=== PATIENT | female | born 1945 | race Caucasian/White ===

== ENCOUNTER → 2018-12-19 | Outpatient (CLI) | payer MEDICARE ==
[~2018-12-19] MED LIST: ALEN35 PO; ASPI325 PO; Amitiza24 MCG; CALPHO600 PO; DICL75ER; DOXE10 PO; ESCI10; ESTRTP; FISH1000 PO; GABA300 PO; MECL25 PO; METO50ER PO; NORT25; OLME20; TEMA7.5
[2018-12-19 12:28] LABS: BASOPHILS ABSOLUTE AUTO 0.02 K/mm3 (0.00-0.23); BASOPHILS PERCENT AUTO 0 % (0-2); EOSINOPHILS ABSOLUTE AUTO 0.04 K/mm3 (0.00-0.68); EOSINOPHILS PERCENT AUTO 1 % (0-6); Hematocrit 39.7 % (33.0-51.0); Hemoglobin 13.3 g/dL (11.5-16.0); IMMATURE GRAN ABSOLUTE AUTO 0.01 K/mm3 (0.00-0.10); IMMATURE GRAN PERCENT AUTO 0 % (0-1); LYMPHOCYTES ABSOLUTE AUTO 1.66 K/mm3 (0.84-5.20); LYMPHOCYTES PERCENT AUTO 31 % (21-46); MONOCYTES ABSOLUTE AUTO 0.59 K/mm3 (0.16-1.47); MONOCYTES PERCENT AUTO 11 % (4-13); Mean Corpuscular HGB 32.4 pg (26.0-34.0); Mean Corpuscular HGB Conc 33.5 g/dL (31.5-36.5); Mean Corpuscular Volume 97 fL (80-100); Mean Platelet Volume 9.9 fL (9.1-12.4); NEUTROPHILS PERCENT AUTO 57 % (41-73); Platelet Count 220 K/mm3 (150-400); RDW Coefficient Variation 13.1 % (11.7-14.2); RDW Standard Deviation 46.6 fL (35.1-46.3); White Blood Cell Count 5.42 K/mm3 (4.00-11.30)
[2018-12-19 12:43] LABS: Alanine Aminotransfer (ALT/SGP 32 U/L (12-78); Albumin, Blood 3.9 g/dL (3.4-5.0); Albumin/Globulin Ratio 1.1 (0.8-1.8); Alk Phos 63 U/L (40-126); Anion Gap 8 mmol/L (6-16); Aspartate Aminotrans (AST/SGOT 22 U/L (12-37); Bilirubin, Total 0.3 mg/dL (0.1-1.0); Blood Urea Nitrogen 18 mg/dL (8-24); Bun/Creatinine Ratio 23.7 (12.0-20.0); CO2, Blood 28 mmol/L (21-32); Calcium, Blood 9.4 mg/dL (8.5-10.1); Chloride, Blood 102 mmol/L (98-108); Creatinine, Blood 0.76 mg/dL (0.40-1.00); Globulin, Blood 3.6 g/dL (2.2-4.0); Glomerular Filtration Rate >60 (60-); Glucose, Blood 107 mg/dL (70-99); Potassium, Blood 4.1 mmol/L (3.5-5.5); Sodium, Blood 138 mmol/L (136-145); Total Protein, Blood 7.5 g/dL (6.4-8.2)
[2018-12-19 12:44] LABS: Troponin I <0.017 ng/mL (0.000-0.040)
== END ==
LOC: LAB EV 12:24 → LAB SHORT 12:24
PROVIDERS: Emergency Medicine
DX: R94.31 Abnormal electrocardiogram [ECG] [EKG] (principal)
CPT/HCPCS: 80053; 84484; 85025; 85379

== ENCOUNTER 2020-05-08 08:43 | Emergency (ER) | payer MEDICARE ==
[~2020-05-08] VITALS: Ht 157.5 cm; Wt 63.5 kg
[2020-05-08 09:14] LABS: BASOPHILS ABSOLUTE AUTO 0.02 K/mm3 (0.00-0.23); BASOPHILS PERCENT AUTO 0 % (0-2); EOSINOPHILS ABSOLUTE AUTO 0.14 K/mm3 (0.00-0.68); EOSINOPHILS PERCENT AUTO 3 % (0-6); Hematocrit 36.1 % (33.0-51.0); Hemoglobin 11.7 g/dL (11.5-16.0); IMMATURE GRAN ABSOLUTE AUTO 0.01 K/mm3 (0.00-0.10); IMMATURE GRAN PERCENT AUTO 0 % (0-1); LYMPHOCYTES ABSOLUTE AUTO 1.78 K/mm3 (0.84-5.20); LYMPHOCYTES PERCENT AUTO 36 % (21-46); MONOCYTES ABSOLUTE AUTO 0.69 K/mm3 (0.16-1.47); MONOCYTES PERCENT AUTO 14 % (4-13); Mean Corpuscular HGB 32.3 pg (26.0-34.0); Mean Corpuscular HGB Conc 32.4 g/dL (31.5-36.5); Mean Corpuscular Volume 100 fL (80-100); Mean Platelet Volume 9.8 fL (9.1-12.4); NEUTROPHILS ABSOLUTE AUTO 2.33 K/mm3 (1.96-9.15); NEUTROPHILS PERCENT AUTO 47 % (41-73); Platelet Count 192 K/mm3 (150-400); RDW Coefficient Variation 13.6 % (11.7-14.2); RDW Standard Deviation 50.2 fL (35.1-46.3); Red Blood Cell Count 3.62 M/mm3 (3.80-5.20); White Blood Cell Count 4.97 K/mm3 (4.00-11.30)
[2020-05-08 09:33] LABS: Alanine Aminotransfer (ALT/SGP 25 U/L (12-78); Albumin, Blood 3.2 g/dL (3.4-5.0); Alk Phos 59 U/L (50-136); Anion Gap 2 mmol/L (6-16); Aspartate Aminotrans (AST/SGOT 16 U/L (12-37); Bilirubin, Total 0.5 mg/dL (0.1-1.0); Blood Urea Nitrogen 19 mg/dL (8-24); Bun/Creatinine Ratio 20.9 (12.0-20.0); CO2, Blood 31 mmol/L (21-32); Calcium, Blood 8.5 mg/dL (8.5-10.1); Chloride, Blood 107 mmol/L (98-108); Creatinine, Blood 0.91 mg/dL (0.40-1.00); Globulin, Blood 3.1 g/dL (2.2-4.0); Glomerular Filtration Rate >60 (60-); Glucose, Blood 119 mg/dL (70-99); Potassium, Blood 3.9 mmol/L (3.5-5.5); Sodium, Blood 140 mmol/L (136-145); Total Protein, Blood 6.3 g/dL (6.4-8.2); Troponin I <0.015 ng/mL (0.000-0.040)
[2020-05-08 10:08] LABS: Source, Urine Clean Catch
[2020-05-08 10:17] LABS: Appearance, Urine Clear (Clear); Color, Urine Yellow (P-Yellow); Leukocyte Esterase, Urine Neg (Neg); Nitrite, Urine Neg (Neg); Specific Gravity, Urine 1.015 (1.003-1.022)
[2020-05-08 10:18] LABS: Bilirubin, Urine Neg (Neg); Blood, Urine 1+ (Neg); Glucose Qualitative, Urine NORM (Neg); Ketones, Urine Neg (Neg); Protein, Urine Trace (Neg); Urobilinogen, Urine NORM (Normal)
[2020-05-08 10:24] LABS: Bacteria Not Seen /hpf; Red Blood Cells, Urine 0-2 /hpf (0-2); Squamous Epithelial Cells Not Seen /hpf (Few); White Blood Cells, Urine Not Seen /hpf (0-5)
== END 2020-05-08 11:23 | disposition home or self-care (01) ==
LOC: ER 08:43
PROVIDERS: Emergency Medicine
DX: R55 Syncope and collapse (principal); Z88.0 Allergy status to penicillin; Z88.2 Allergy status to sulfonamides; Z88.8 Allergy status to other drugs, medicaments and biological substances; I10 Essential (primary) hypertension; Z79.899 Other long term (current) drug therapy
CPT/HCPCS: 71045; 80053; 81001; 84484; 85025; 93005; 93010; 99284-25

== ENCOUNTER 2020-10-18 09:11 | Emergency (ER) | payer MEDICARE ==
[~2020-10-18] VITALS: Ht 162.6 cm; Wt 55.8 kg
[2020-10-18 11:19] LABS: BASOPHILS ABSOLUTE AUTO 0.02 K/mm3 (0.00-0.23); BASOPHILS PERCENT AUTO 0 % (0-2); EOSINOPHILS PERCENT AUTO 0 % (0-6); Hematocrit 42.6 % (33.0-51.0); Hemoglobin 13.8 g/dL (11.5-16.0); IMMATURE GRAN ABSOLUTE AUTO 0.02 K/mm3 (0.00-0.10); IMMATURE GRAN PERCENT AUTO 0 % (0-1); LYMPHOCYTES ABSOLUTE AUTO 1.11 K/mm3 (0.84-5.20); LYMPHOCYTES PERCENT AUTO 17 % (21-46); MONOCYTES ABSOLUTE AUTO 0.76 K/mm3 (0.16-1.47); MONOCYTES PERCENT AUTO 12 % (4-13); Mean Corpuscular HGB 31.7 pg (26.0-34.0); Mean Corpuscular HGB Conc 32.4 g/dL (31.5-36.5); Mean Corpuscular Volume 98 fL (80-100); NEUTROPHILS ABSOLUTE AUTO 4.64 K/mm3 (1.96-9.15); NEUTROPHILS PERCENT AUTO 71 % (41-73); Platelet Count 237 K/mm3 (150-400); RDW Coefficient Variation 13.3 % (11.7-14.2); Red Blood Cell Count 4.36 M/mm3 (3.80-5.20); White Blood Cell Count 6.55 K/mm3 (4.00-11.30)
[2020-10-18 11:24] LABS: Source, Urine Clean Catch
[2020-10-18 11:35] LABS: Appearance, Urine Clear (Clear); Bilirubin, Urine Neg (Neg); Blood, Urine 4+ (Neg); Color, Urine Yellow (P-Yellow); Glucose Qualitative, Urine Neg (Neg); Ketones, Urine Neg (Neg); Leukocyte Esterase, Urine 1+ (Neg); Nitrite, Urine Neg (Neg); Protein, Urine 2+ (Neg); Urobilinogen, Urine NORM (Normal)
[2020-10-18 11:41] LABS: Alanine Aminotransfer (ALT/SGP 41 U/L (12-78); Albumin/Globulin Ratio 1.1 (0.8-1.8); Alk Phos 87 U/L (50-136); Anion Gap 6 mmol/L (6-16); Aspartate Aminotrans (AST/SGOT 18 U/L (12-37); Bilirubin, Total 0.5 mg/dL (0.1-1.0); Blood Urea Nitrogen 12 mg/dL (8-24); CO2, Blood 29 mmol/L (21-32); Calcium, Blood 9.2 mg/dL (8.5-10.1); Chloride, Blood 102 mmol/L (98-108); Globulin, Blood 3.6 g/dL (2.2-4.0); Glomerular Filtration Rate >60 (60-); Glucose, Blood 113 mg/dL (70-99); Potassium, Blood 3.3 mmol/L (3.5-5.5); Sodium, Blood 137 mmol/L (136-145); Total Protein, Blood 7.6 g/dL (6.4-8.2)
[2020-10-18 11:43] LABS: White Blood Cells, Urine 0-2 /hpf (0-5)
[2020-10-18 11:44] LABS: Bacteria Few /hpf; Mucus Light (0-Heavy); Squamous Epithelial Cells Few /hpf (Few)
[2020-10-18] MEDS ORDERED: LOSA50 PO (12:51)
[2020-10-18] MEDS ORDERED: TRAZ50 PO (12:52)
[2020-10-18] MEDS ORDERED: DICY20 PO (12:52)
[2020-10-18 14:38] LABS: Troponin I <0.015 ng/mL (0.000-0.040)
[2020-10-18] MEDS ORDERED: KEFLEX500 MG PO (15:33)
[2020-10-18] MEDS ORDERED: ONDA4ODT MM (15:33)
== END 2020-10-18 16:40 | disposition home or self-care (01) ==
LOC: ER 09:11
PROVIDERS: Emergency Medicine
DX: N39.0 Urinary tract infection, site not specified (principal); R19.7 Diarrhea, unspecified; E87.6 Hypokalemia; I10 Essential (primary) hypertension; Z88.0 Allergy status to penicillin; Z88.2 Allergy status to sulfonamides; Z88.1 Allergy status to other antibiotic agents; Z79.899 Other long term (current) drug therapy
CPT/HCPCS: 36415; 74177; 80053; 81001; 82272; 83690; 83735; 84484; 85025; 87086; 93005; 93010; 96365-59; 96375; 99284-25; J0696; J2405; J7030; Q9967

== ENCOUNTER → 2020-10-21 | Outpatient (CLI) | payer MEDICARE ==
[~2020-10-21] MED LIST changes: +AMLO5 PO; +Amitiza8 MCG PO; +CALCIUM CITRAT250 MG PO; +DICY20 PO; +IBUP200 PO; +KEFLEX500 MG PO; +LOSA50 PO; +MELA3 PO; +MIRT15 PO; +ONDA4ODT MM; +TRAZ50 PO
[2020-10-22 13:12] LABS: ADENOVIRUS F 40/41 Not Detected (Not Detected); ASTROVIRUS Not Detected (Not Detected); C DIFFICILE TOXIN A/B Not Detected (Not Detected); CRYPTOSPORIDIUM Not Detected (Not Detected); CYCLOSPORA CAYETANENSIS Not Detected (Not Detected); ENTAMOEBA HISTOLYTICA Not Detected (Not Detected); ENTEROAGGREGATIVE E COLI Not Detected (Not Detected); ENTEROPATHOGENIC E COLI Not Detected (Not Detected); ENTEROTOXIGENIC E COLI Not Detected (Not Detected); GIARDIA LAMBLIA Not Detected (Not Detected); NOROVIRUS GI/GII Not Detected (Not Detected); PLESIOMONAS SHIGELLOIDES Not Detected (Not Detected); ROTAVIRUS A Not Detected (Not Detected); SALMONELLA Not Detected (Not Detected); SAPOVIRUS Not Detected (Not Detected); SHIGA-TOXIN-PRODUCING E COLI Not Detected (Not Detected); SHIGELLA/ENTEROINVASIVE E COLI Not Detected (Not Detected); VIBRIO Not Detected (Not Detected); VIBRIO CHOLERAE Not Detected (Not Detected); YERSINIA ENTEROCOLITICA Not Detected (Not Detected)
== END | disposition home or self-care (01) ==
LOC: LAB 07:50
PROVIDERS: Student in an Organized Health Care Education/Training Program
DX: K58.9 Irritable bowel syndrome, unspecified (principal); R19.7 Diarrhea, unspecified
CPT/HCPCS: 0097U; 87338; 89055

== ENCOUNTER → 2020-10-22 | Outpatient (CLI) | payer MEDICARE | END | disposition home or self-care (01) | LOC: LAB 09:34 | DX: K58.9 Irritable bowel syndrome, unspecified (principal); R19.7 Diarrhea, unspecified | CPT/HCPCS: 87015; 87045; 87046; 87177; 87205; 87209; 87899 ==

== ENCOUNTER → 2020-11-05 | Outpatient (CLI) | payer MEDICARE ==
[2020-11-05 18:46] LABS: BASOPHILS ABSOLUTE AUTO 0.01 K/mm3 (0.00-0.23); BASOPHILS PERCENT AUTO 0 % (0-2); EOSINOPHILS ABSOLUTE AUTO 0.01 K/mm3 (0.00-0.68); EOSINOPHILS PERCENT AUTO 0 % (0-6); Hemoglobin 13.1 g/dL (11.5-16.0); IMMATURE GRAN ABSOLUTE AUTO 0.03 K/mm3 (0.00-0.10); IMMATURE GRAN PERCENT AUTO 1 % (0-1); LYMPHOCYTES ABSOLUTE AUTO 1.36 K/mm3 (0.84-5.20); LYMPHOCYTES PERCENT AUTO 21 % (21-46); MONOCYTES PERCENT AUTO 12 % (4-13); Mean Corpuscular HGB 31.6 pg (26.0-34.0); Mean Corpuscular HGB Conc 33.6 g/dL (31.5-36.5); Mean Corpuscular Volume 94 fL (80-100); Mean Platelet Volume 10.4 fL (9.1-12.4); NEUTROPHILS ABSOLUTE AUTO 4.36 K/mm3 (1.96-9.15); NEUTROPHILS PERCENT AUTO 66 % (41-73); Platelet Count 189 K/mm3 (150-400); RDW Standard Deviation 44.9 fL (35.1-46.3); Red Blood Cell Count 4.14 M/mm3 (3.80-5.20); White Blood Cell Count 6.57 K/mm3 (4.00-11.30)
[2020-11-05 19:52] LABS: Anion Gap 8 mmol/L (6-16); Blood Urea Nitrogen 13 mg/dL (8-24); CO2, Blood 26 mmol/L (21-32); Calcium, Blood 9.1 mg/dL (8.5-10.1); Chloride, Blood 92 mmol/L (98-108); Creatinine, Blood 0.81 mg/dL (0.40-1.00); Glomerular Filtration Rate >60 (60-); Glucose, Blood 127 mg/dL (70-99); Potassium, Blood 3.3 mmol/L (3.5-5.5); Sodium, Blood 126 mmol/L (136-145)
== END | disposition home or self-care (01) ==
LOC: LAB 15:45
PROVIDERS: Nurse Practitioner Family
DX: R55 Syncope and collapse (principal); R53.83 Other fatigue
CPT/HCPCS: 80048; 84443; 85025

== ENCOUNTER 2020-11-07 17:42 | Emergency (ER) | payer MEDICARE ==
[~2020-11-07] VITALS: Ht 162.6 cm; Wt 55.8 kg
[~2020-11-07 17:42] MED LIST changes: -AMLO5 PO; -Amitiza8 MCG PO; -CALCIUM CITRAT250 MG PO; -IBUP200 PO; -MELA3 PO; -MIRT15 PO
[2020-11-07 18:29] LABS: BASOPHILS ABSOLUTE AUTO 0.01 K/mm3 (0.00-0.23); BASOPHILS PERCENT AUTO 0 % (0-2); EOSINOPHILS ABSOLUTE AUTO 0.06 K/mm3 (0.00-0.68); EOSINOPHILS PERCENT AUTO 1 % (0-6); Hematocrit 37.6 % (33.0-51.0); Hemoglobin 12.8 g/dL (11.5-16.0); IMMATURE GRAN ABSOLUTE AUTO 0.01 K/mm3 (0.00-0.10); IMMATURE GRAN PERCENT AUTO 0 % (0-1); LYMPHOCYTES ABSOLUTE AUTO 1.75 K/mm3 (0.84-5.20); LYMPHOCYTES PERCENT AUTO 28 % (21-46); MONOCYTES ABSOLUTE AUTO 0.84 K/mm3 (0.16-1.47); MONOCYTES PERCENT AUTO 14 % (4-13); Mean Corpuscular HGB 31.9 pg (26.0-34.0); Mean Corpuscular Volume 94 fL (80-100); NEUTROPHILS ABSOLUTE AUTO 3.57 K/mm3 (1.96-9.15); NEUTROPHILS PERCENT AUTO 57 % (41-73); Platelet Count 208 K/mm3 (150-400); RDW Coefficient Variation 12.8 % (11.7-14.2); RDW Standard Deviation 44.6 fL (35.1-46.3); Red Blood Cell Count 4.01 M/mm3 (3.80-5.20); White Blood Cell Count 6.24 K/mm3 (4.00-11.30)
[2020-11-07 18:50] LABS: Alanine Aminotransfer (ALT/SGP 31 U/L (12-78); Albumin, Blood 3.6 g/dL (3.4-5.0); Albumin/Globulin Ratio 1.2 (0.8-1.8); Alk Phos 56 U/L (50-136); Anion Gap 7 mmol/L (6-16); Aspartate Aminotrans (AST/SGOT 17 U/L (12-37); Bilirubin, Total 0.4 mg/dL (0.1-1.0); Blood Urea Nitrogen 15 mg/dL (8-24); Bun/Creatinine Ratio 19.3 (12.0-20.0); CO2, Blood 27 mmol/L (21-32); Calcium, Blood 9.1 mg/dL (8.5-10.1); Chloride, Blood 92 mmol/L (98-108); Creatinine, Blood 0.78 mg/dL (0.40-1.00); Glomerular Filtration Rate >60 (60-); Glucose, Blood 130 mg/dL (70-99); Potassium, Blood 3.6 mmol/L (3.5-5.5); Sodium, Blood 126 mmol/L (136-145); Total Protein, Blood 6.6 g/dL (6.4-8.2)
[2020-11-07 19:35] LABS: Source, Urine Clean Catch
[2020-11-07 19:42] LABS: Appearance, Urine Clear (Clear); Bilirubin, Urine Neg (Neg); Blood, Urine 3+ (Neg); Color, Urine Yellow (P-Yellow); Glucose Qualitative, Urine Neg (Neg); Ketones, Urine Neg (Neg); Leukocyte Esterase, Urine Neg (Neg); Nitrite, Urine Neg (Neg); Protein, Urine Neg (Neg); Urobilinogen, Urine NORM (Normal)
[2020-11-07 19:52] LABS: Bacteria Few /hpf; Squamous Epithelial Cells Rare /hpf (Few); White Blood Cells, Urine 0-2 /hpf (0-5)
[2020-11-07] MEDS ORDERED: CALCIUM CITRAT250 MG PO (21:12)
[2020-11-07] MEDS ORDERED: MELA3 PO (21:13)
[2020-11-07] MEDS ORDERED: Amitiza8 MCG PO (21:13)
== END 2020-11-07 21:22 | disposition home or self-care (01) ==
LOC: ER 17:42
PROVIDERS: Physician Assistant
DX: E87.1 Hypo-osmolality and hyponatremia (principal); E87.8 Other disorders of electrolyte and fluid balance, not elsewhere classified; R19.7 Diarrhea, unspecified; I10 Essential (primary) hypertension; Z88.0 Allergy status to penicillin; Z88.2 Allergy status to sulfonamides; Z88.1 Allergy status to other antibiotic agents; Z79.899 Other long term (current) drug therapy; Z87.891 Personal history of nicotine dependence
CPT/HCPCS: 36415; 80053; 81001; 85025; 93005; 93010; 99283-25; A9270; J7030

== ENCOUNTER → 2020-11-12 | Outpatient (CLI) | payer MEDICARE ==
[~2020-11-12] MED LIST changes: +AMLO5 PO; +Amitiza8 MCG PO; +CALCIUM CITRAT250 MG PO; +IBUP200 PO; +MELA3 PO; +MIRT15 PO
[2020-11-12 20:07] LABS: Alanine Aminotransfer (ALT/SGP 37 U/L (12-78); Albumin, Blood 3.5 g/dL (3.4-5.0); Albumin/Globulin Ratio 1.2 (0.8-1.8); Alk Phos 57 U/L (50-136); Anion Gap 5 mmol/L (6-16); Aspartate Aminotrans (AST/SGOT 18 U/L (12-37); Bilirubin, Total 0.3 mg/dL (0.1-1.0); Blood Urea Nitrogen 16 mg/dL (8-24); Bun/Creatinine Ratio 18.5 (12.0-20.0); CO2, Blood 27 mmol/L (21-32); Calcium, Blood 9.3 mg/dL (8.5-10.1); Chloride, Blood 105 mmol/L (98-108); Creatinine, Blood 0.87 mg/dL (0.40-1.00); Glomerular Filtration Rate >60 (60-); Glucose, Blood 92 mg/dL (70-99); Magnesium, Blood 2.4 mg/dL (1.6-2.4); Potassium, Blood 3.9 mmol/L (3.5-5.5); Sodium, Blood 137 mmol/L (136-145); Total Protein, Blood 6.5 g/dL (6.4-8.2)
== END ==
LOC: PLD 17:28
PROVIDERS: Student in an Organized Health Care Education/Training Program
DX: I10 Essential (primary) hypertension (principal)
CPT/HCPCS: 80053; 83735

== ENCOUNTER 2021-01-10 08:29 | Day surgery (SDC) | payer MEDICARE ==
[~2021-01-10] VITALS: Ht 162.6 cm; Wt 58.2 kg
[~2021-01-10 08:29] MED LIST changes: -IBUP200 PO
[2021-01-10] MEDS ORDERED: IBUP200 PO (09:19)
--- NOTE | 2021-01-10 09:44 | NUR ---
Ambulatory in Day Surgery Surgical site prepped with 2% Chlorhexidine cloth wipe. History, Chart, Medications and Allergies reviewed before start of procedure.Lungs clear T/O to Auscultation. Patient confirms NPO status and agrees with scheduled surgery. Patient reports completing Chlorhexadine shower X2 prior to admission to hospital. PT UNDERSTANDS RISKS OF NOT REMOVING JEWELRY, CONSENT SIGNED.
--- NOTE | 2021-01-10 15:16 | NUR ---
PT VOICE WAS VERY HOARSE WHEN WHE CAME FROM PACU, AFTER DRINKING FLUIDS IT IS GETTING BETTER. PT DENIES ANY PAIN. DRESSING S REMAINED CDI THROUGHTOUT RECOVERY. PT REFUSED ANY PAIN MEDS PRIOR TO LEAVING HOSPITAL. Discharge instructions reviewed with patient. Patient verbalizes understanding. Copy given to patient to take home. Patient States Post-Procedure ride home has been arranged. Discharged via wheelchair to private car for ride home. ALL BELONINGS RETURNED T PATIENT.
== END 2021-01-10 15:20 | disposition home or self-care (01) ==
LOC: ORSCMMR 08:29 → ORD 12:00 → ORSCMMR 15:20
PROVIDERS: Surgery
PROC: 8E0W4CZ Robotic Assisted Procedure of Trunk Region, Percutaneous Endoscopic Approach (ICD-10-PCS; principal; 2021-01-10 12:00)
PROC: 0YU64JZ Supplement Left Inguinal Region with Synthetic Substitute, Percutaneous Endoscopic Approach (ICD-10-PCS; principal; 2021-01-10 12:00)
DX: K40.90 Unilateral inguinal hernia, without obstruction or gangrene, not specified as recurrent (principal); I10 Essential (primary) hypertension; Z87.891 Personal history of nicotine dependence; Z79.899 Other long term (current) drug therapy
CPT/HCPCS: 49650; S2900; C1781; J0690; J1100; J2370; J2405; J2704; J3010; J7120

== ENCOUNTER 2021-06-24 12:08 | Day surgery (SDC) | payer MEDICARE ==
[~2021-06-24] VITALS: Ht 162.6 cm; Wt 57.0 kg
[~2021-06-24 12:08] MED LIST changes: +IBUP200 PO
--- NOTE | 2021-06-24 16:17 | NUR ---
06/24/21 1617 Elizabeth Levine PT. WAS ASSESSED & TAKEN IN FOR PROCEDURE BY YOLY. [facility] [place]T LISTEN TO PT. LUNGS OR ASK ABOUT PAIN SINCE [facility]OL[facility] TALKED WITH PT.
== END 2021-06-24 13:45 | disposition home or self-care (01) ==
LOC: ORSCSDS 12:08
PROVIDERS: Internal Medicine Gastroenterology
PROC: 0DJD8ZZ Inspection of Lower Intestinal Tract, Via Natural or Artificial Opening Endoscopic (ICD-10-PCS; principal; 2021-06-24 13:30)
DX: Z12.11 Encounter for screening for malignant neoplasm of colon (principal); K57.30 Diverticulosis of large intestine without perforation or abscess without bleeding; K64.8 Other hemorrhoids; F41.9 Anxiety disorder, unspecified; Z87.891 Personal history of nicotine dependence; Z79.899 Other long term (current) drug therapy
CPT/HCPCS: J2704; J7120

== ENCOUNTER → 2021-07-02 | Outpatient (CLI) | payer MEDICARE | END | disposition home or self-care (01) | LOC: LAB 08:09 → LAB SHORT 08:09 | DX: D23.121 Other benign neoplasm of skin of left upper eyelid, including canthus (principal) | CPT/HCPCS: 88305 ==

== ENCOUNTER 2021-11-28 08:57 | Day surgery (SDC) | payer MEDICARE | END 2021-11-28 10:10 | disposition home or self-care (01) | LOC: ATC 08:57 | DX: R35.0 Frequency of micturition (principal); I10 Essential (primary) hypertension; Z88.0 Allergy status to penicillin; Z88.2 Allergy status to sulfonamides; Z88.1 Allergy status to other antibiotic agents; Z87.891 Personal history of nicotine dependence | CPT/HCPCS: 51798 ==

== ENCOUNTER → 2022-12-25 | Outpatient (CLI) | payer MEDICARE | END | disposition home or self-care (01) | LOC: LAB SHORT 12:02 → LAB 12:02 | DX: K58.1 Irritable bowel syndrome with constipation (principal); R10.9 Unspecified abdominal pain; R14.0 Abdominal distension (gaseous) | CPT/HCPCS: 87338 ==

== ENCOUNTER 2023-05-27 11:13 | Emergency (ER) | payer MEDICARE ==
[~2023-05-27] VITALS: Ht 162.6 cm; Wt 54.0 kg
[2023-05-27 15:47] LABS: BASOPHILS ABSOLUTE AUTO 0.01 K/mm3 (0.00-0.23); BASOPHILS PERCENT AUTO 0 % (0-2); EOSINOPHILS PERCENT AUTO 0 % (0-6); Hematocrit 42.2 % (33.0-51.0); Hemoglobin 14.3 g/dL (11.5-16.0); IMMATURE GRAN ABSOLUTE AUTO 0.03 K/mm3 (0.00-0.10); IMMATURE GRAN PERCENT AUTO 0 % (0-1); LYMPHOCYTES ABSOLUTE AUTO 1.73 K/mm3 (0.84-5.20); LYMPHOCYTES PERCENT AUTO 17 % (21-46); MONOCYTES ABSOLUTE AUTO 0.85 K/mm3 (0.16-1.47); MONOCYTES PERCENT AUTO 8 % (4-13); Mean Corpuscular HGB 32.4 pg (26.0-34.0); Mean Corpuscular HGB Conc 33.9 g/dL (31.5-36.5); Mean Corpuscular Volume 96 fL (80-100); Mean Platelet Volume 9.8 fL (9.1-12.4); NEUTROPHILS ABSOLUTE AUTO 7.75 K/mm3 (1.96-9.15); NEUTROPHILS PERCENT AUTO 75 % (41-73); Platelet Count 223 K/mm3 (150-400); RDW Coefficient Variation 12.9 % (11.7-14.2); RDW Standard Deviation 46.3 fL (35.1-46.3); Red Blood Cell Count 4.41 M/mm3 (3.80-5.20); White Blood Cell Count 10.37 K/mm3 (4.00-11.30)
[2023-05-27 16:04] LABS: Albumin, Blood 3.3 g/dL (3.4-5.0); Albumin/Globulin Ratio 0.8 (0.8-1.8); Bilirubin, Total 0.3 mg/dL (0.1-1.0); Bun/Creatinine Ratio 27.5 (12.0-20.0); Calcium, Blood 9.2 mg/dL (8.5-10.1); Creatinine, Blood 0.91 mg/dL (0.40-1.00); Globulin, Blood 4.1 g/dL (2.2-4.0); Potassium, Blood 3.4 mmol/L (3.5-5.5); Total Protein, Blood 7.4 g/dL (6.4-8.2)
[2023-05-27] MEDS ORDERED: ELIQUIS5 M2 PO (17:00)
[2023-05-27 17:34] VITALS: BP 151/106
== END 2023-05-27 17:43 | disposition home or self-care (01) ==
LOC: ER 11:13
PROVIDERS: Emergency Medicine
DX: R55 Syncope and collapse (principal); R19.7 Diarrhea, unspecified; R10.30 Lower abdominal pain, unspecified; I48.91 Unspecified atrial fibrillation; J20.8 Acute bronchitis due to other specified organisms; I10 Essential (primary) hypertension; Z87.891 Personal history of nicotine dependence; Z88.0 Allergy status to penicillin; Z88.1 Allergy status to other antibiotic agents; Z88.2 Allergy status to sulfonamides; Z79.899 Other long term (current) drug therapy
CPT/HCPCS: 80053; 83880; 84484; 85025; 93005; 93010; 96360; 96361; 99283-25; A9270; J7120

== ENCOUNTER 2023-10-31 09:08 | Emergency (ER) | payer MEDICARE ==
[~2023-10-31] VITALS: Ht 162.6 cm; Wt 54.4 kg
[~2023-10-31 09:08] MED LIST changes: +CYAN1000I SC; +ELIQUIS5 M2 PO; +POLY500 PO; +PRESERVISION A1 EAC2 PO; +VITAMIN D310 MC4 PO
[2023-10-31 10:16] LABS: BASOPHILS ABSOLUTE AUTO 0.02 K/mm3 (0.00-0.23); BASOPHILS PERCENT AUTO 1 % (0-2); EOSINOPHILS PERCENT AUTO 0 % (0-6); Hematocrit 39.1 % (33.0-51.0); Hemoglobin 13.5 g/dL (11.5-16.0); IMMATURE GRAN ABSOLUTE AUTO 0.01 K/mm3 (0.00-0.10); IMMATURE GRAN PERCENT AUTO 0 % (0-1); LYMPHOCYTES ABSOLUTE AUTO 1.37 K/mm3 (0.84-5.20); LYMPHOCYTES PERCENT AUTO 39 % (21-46); MONOCYTES ABSOLUTE AUTO 0.59 K/mm3 (0.16-1.47); MONOCYTES PERCENT AUTO 17 % (4-13); Mean Corpuscular HGB 32.7 pg (26.0-34.0); Mean Corpuscular HGB Conc 34.5 g/dL (31.5-36.5); Mean Corpuscular Volume 95 fL (80-100); Mean Platelet Volume 9.7 fL (9.1-12.4); NEUTROPHILS ABSOLUTE AUTO 1.54 K/mm3 (1.96-9.15); NEUTROPHILS PERCENT AUTO 44 % (41-73); Platelet Count 196 K/mm3 (150-400); RDW Coefficient Variation 13.2 % (11.7-14.2); RDW Standard Deviation 46.6 fL (35.1-46.3); Red Blood Cell Count 4.13 M/mm3 (3.80-5.20); White Blood Cell Count 3.53 K/mm3 (4.00-11.30)
[2023-10-31 10:35] LABS: Albumin, Blood 3.4 g/dL (3.4-5.0); Albumin/Globulin Ratio 0.9 (0.8-1.8); Bilirubin, Total 0.2 mg/dL (0.1-1.0); Bun/Creatinine Ratio 22.2 (12.0-20.0); Calcium, Blood 8.8 mg/dL (8.5-10.1); Creatinine, Blood 0.9 mg/dL (0.40-1.00); Globulin, Blood 3.7 g/dL (2.2-4.0); Potassium, Blood 3.7 mmol/L (3.5-5.5); Total Protein, Blood 7.1 g/dL (6.4-8.2)
[2023-10-31 12:30] VITALS: BP 142/85
== END 2023-10-31 12:45 | disposition home or self-care (01) ==
LOC: ER 09:08
PROVIDERS: Physician Assistant
DX: R55 Syncope and collapse (principal); Z88.0 Allergy status to penicillin; Z88.2 Allergy status to sulfonamides; Z88.1 Allergy status to other antibiotic agents; Z79.899 Other long term (current) drug therapy; I10 Essential (primary) hypertension; I48.91 Unspecified atrial fibrillation; Z87.891 Personal history of nicotine dependence
CPT/HCPCS: 80053; 83690; 85025; 93005; 93010; 96361; 96374; 99284-25; J7030

== ENCOUNTER → 2023-11-20 | Outpatient (CLI) | payer MEDICARE ==
[~2023-11-20] MED LIST changes: +BUSP5 PO; +CREON DR 12,001 EACH PO; +DILT180 PO; +DILT30 PO; +FURO20 PO; +MELATONIN5 M1 PO; +METO100ER PO; +MIRALAX17 GM PO; +ONDA4 PO; +TRAZ100 PO
[2023-11-20 15:36] LABS: BASOPHILS ABSOLUTE AUTO 0.01 K/mm3 (0.00-0.23); BASOPHILS PERCENT AUTO 0 % (0-2); EOSINOPHILS ABSOLUTE AUTO 0.01 K/mm3 (0.00-0.68); EOSINOPHILS PERCENT AUTO 0 % (0-6); Hematocrit 36.1 % (33.0-51.0); Hemoglobin 12.3 g/dL (11.5-16.0); IMMATURE GRAN ABSOLUTE AUTO 0.02 K/mm3 (0.00-0.10); IMMATURE GRAN PERCENT AUTO 0 % (0-1); LYMPHOCYTES ABSOLUTE AUTO 0.95 K/mm3 (0.84-5.20); LYMPHOCYTES PERCENT AUTO 20 % (21-46); MONOCYTES PERCENT AUTO 15 % (4-13); Mean Corpuscular HGB 33.1 pg (26.0-34.0); Mean Corpuscular HGB Conc 34.1 g/dL (31.5-36.5); Mean Corpuscular Volume 97 fL (80-100); NEUTROPHILS ABSOLUTE AUTO 3.13 K/mm3 (1.96-9.15); NEUTROPHILS PERCENT AUTO 65 % (41-73); Platelet Count 175 K/mm3 (150-400); RDW Coefficient Variation 14.4 % (11.7-14.2); RDW Standard Deviation 51.2 fL (35.1-46.3); Red Blood Cell Count 3.72 M/mm3 (3.80-5.20); White Blood Cell Count 4.82 K/mm3 (4.00-11.30)
[2023-11-20 15:55] LABS: Albumin, Blood 3.3 g/dL (3.4-5.0); Albumin/Globulin Ratio 1.2 (0.8-1.8); Bilirubin, Total 0.4 mg/dL (0.1-1.0); Bun/Creatinine Ratio 10.9 (12.0-20.0); Creatinine, Blood 1.01 mg/dL (0.40-1.00); Globulin, Blood 2.8 g/dL (2.2-4.0); Potassium, Blood 3.9 mmol/L (3.5-5.5); Thyroid Stimulating Hormone 2.258 uIU/mL (0.360-4.800); Total Protein, Blood 6.1 g/dL (6.4-8.2)
== END ==
LOC: LAB 15:31 → LAB SHORT 15:31
PROVIDERS: Physician Assistant Surgical
DX: R00.0 Tachycardia, unspecified (principal)
CPT/HCPCS: 80053; 84443; 85025

== ENCOUNTER 2023-11-21 07:02 | Inpatient (IN) | payer MEDICARE ==
[~2023-11-21] VITALS: Ht 162.6 cm; Wt 57.0 kg
[~2023-11-21 07:02] MED LIST changes: -BUSP5 PO; -CREON DR 12,001 EACH PO; -DILT180 PO; -DILT30 PO; -FURO20 PO; -MELATONIN5 M1 PO; -METO100ER PO; -MIRALAX17 GM PO; -ONDA4 PO; -TRAZ100 PO
[2023-11-21 07:30] LABS: BASOPHILS ABSOLUTE AUTO 0.01 K/mm3 (0.00-0.23); BASOPHILS PERCENT AUTO 0 % (0-2); EOSINOPHILS ABSOLUTE AUTO 0.04 K/mm3 (0.00-0.68); EOSINOPHILS PERCENT AUTO 1 % (0-6); Hematocrit 37.8 % (33.0-51.0); Hemoglobin 12.8 g/dL (11.5-16.0); IMMATURE GRAN ABSOLUTE AUTO 0.01 K/mm3 (0.00-0.10); IMMATURE GRAN PERCENT AUTO 0 % (0-1); LYMPHOCYTES ABSOLUTE AUTO 1.05 K/mm3 (0.84-5.20); LYMPHOCYTES PERCENT AUTO 19 % (21-46); MONOCYTES ABSOLUTE AUTO 0.52 K/mm3 (0.16-1.47); MONOCYTES PERCENT AUTO 9 % (4-13); Mean Corpuscular HGB 32.9 pg (26.0-34.0); Mean Corpuscular HGB Conc 33.9 g/dL (31.5-36.5); Mean Corpuscular Volume 97 fL (80-100); Mean Platelet Volume 9.8 fL (9.1-12.4); NEUTROPHILS ABSOLUTE AUTO 3.94 K/mm3 (1.96-9.15); NEUTROPHILS PERCENT AUTO 71 % (41-73); Platelet Count 184 K/mm3 (150-400); RDW Coefficient Variation 14.5 % (11.7-14.2); RDW Standard Deviation 51.8 fL (35.1-46.3); Red Blood Cell Count 3.89 M/mm3 (3.80-5.20); White Blood Cell Count 5.57 K/mm3 (4.00-11.30)
[2023-11-21 07:58] LABS: Albumin, Blood 3.2 g/dL (3.4-5.0); Albumin/Globulin Ratio 1.1 (0.8-1.8); Bilirubin, Total 0.5 mg/dL (0.1-1.0); Bun/Creatinine Ratio 13.4 (12.0-20.0); Calcium, Blood 8.6 mg/dL (8.5-10.1); Creatinine, Blood 0.9 mg/dL (0.40-1.00); Globulin, Blood 2.8 g/dL (2.2-4.0); Potassium, Blood 4.1 mmol/L (3.5-5.5)
[2023-11-21 10:09] LABS: Influenza A, PCR NEGATIVE (NEGATIVE); Influenza B, PCR NEGATIVE (NEGATIVE); Resp Syncytial Virus, PCR NEGATIVE (NEGATIVE); SARS-Cov-2 (COVID-19) PCR, MMC NEGATIVE (NEGATIVE)
[2023-11-21 13:05] VITALS: BP 174/102
[2023-11-21] MEDS ORDERED: METO100ER PO (13:40)
[2023-11-21] MEDS ORDERED: ELIQUIS5 M2 PO (13:41)
[2023-11-21] MEDS ORDERED: LOSA50 PO (13:41)
[2023-11-21] MEDS ORDERED: Amitiza8 MCG PO (13:41)
[2023-11-21] MEDS ORDERED: CREON DR 12,001 EACH PO (13:42)
[2023-11-21] MEDS ORDERED: ONDA4 PO (13:43)
[2023-11-21] MEDS ORDERED: DICY20 PO (13:43)
[2023-11-21] MEDS ORDERED: MIRT15 PO (13:44)
[2023-11-21] MEDS ORDERED: TRAZ100 PO (13:44)
[2023-11-21] MEDS ORDERED: BUSP5 PO (13:44)
[2023-11-21 14:06] VITALS: BP 144/108
[2023-11-21 15:54] VITALS: BP 141/111
--- NOTE | 2023-11-21 17:54 | NUR ---
SHIFT SUMMARY; ER ADMIT IN AFTERNOON, A/A/OX4. INDEPENDANT IN ROOM. MEDICATED PER EMAR FOR HR TOUCHING 120'S. TOLERATED WELL, AFIB 90-100 AFTER LOPRESSOR. DENIES SOB OR CHEST PAIN. L/S DIM IN BASES. VSS, WILL CONTINUE TO MONITOR AND TREAT UNTIL CHANGE OF SHIFT.
[2023-11-21 19:58] VITALS: BP 141/86
[2023-11-21 20:00] VITALS: BP 141/86
[2023-11-21 23:18] VITALS: BP 135/88
[2023-11-22 04:22] LABS: Hematocrit 36.7 % (33.0-51.0); Hemoglobin 12.7 g/dL (11.5-16.0); Mean Corpuscular HGB 33.1 pg (26.0-34.0); Mean Corpuscular HGB Conc 34.6 g/dL (31.5-36.5); Mean Corpuscular Volume 96 fL (80-100); Mean Platelet Volume 9.9 fL (9.1-12.4); Platelet Count 176 K/mm3 (150-400); RDW Coefficient Variation 14.5 % (11.7-14.2); RDW Standard Deviation 50.7 fL (35.1-46.3); Red Blood Cell Count 3.84 M/mm3 (3.80-5.20); White Blood Cell Count 4.99 K/mm3 (4.00-11.30)
[2023-11-22 04:43] LABS: Bun/Creatinine Ratio 17.8 (12.0-20.0); Calcium, Blood 8.5 mg/dL (8.5-10.1); Creatinine, Blood 0.9 mg/dL (0.40-1.00); Phosphorus, Blood 3.4 mg/dL (2.5-4.9); Potassium, Blood 3.9 mmol/L (3.5-5.5)
[2023-11-22 05:00] VITALS: BP 170/97
[2023-11-22 05:28] VITALS: BP 170/97
[2023-11-22 07:58] VITALS: BP 154/92
--- NOTE | 2023-11-22 08:50 | NUR ---
ECHO: IMAGING IN ROOM TO COMPLETE ECHO. WILL MONITOR RESULTS.
[2023-11-22 12:44] VITALS: BP 119/93
--- NOTE | 2023-11-22 14:40 | NUR ---
TELE: PT HAD OT DOSE OF CARDIZEM FOR CONTINUED ELEVATED HR. PT HR NOW IN THE 70-90'S PER CONFORMAL PAD FORMER.
--- NOTE | 2023-11-22 15:15 | NUR ---
UA: UA SENT WITH CULT IF INDICATED. PT HAS BEEN COMPLAINING OF LOWER ABD PAIN AND NAUSEA. PT URINE IS CLOUDY WITH SEDIMENT. DENIES PAIN WITH URINATION. PT PO INTAKE IS POOR. WILL MONITOR RESULTS.
[2023-11-22 15:18] LABS: Source, Urine Clean Catch
[2023-11-22 15:25] LABS: Appearance, Urine Hazy (Clear); Bilirubin, Urine Neg (Neg); Blood, Urine 4+ (Neg); Color, Urine Yellow (P-Yellow); Glucose Qualitative, Urine Neg (Neg); Ketones, Urine Neg (Neg); Leukocyte Esterase, Urine Neg (Neg); Nitrite, Urine Neg (Neg); Protein, Urine 2+ (Neg); Specific Gravity, Urine 1.025 (1.003-1.022); Urobilinogen, Urine 1+ (Normal)
[2023-11-22 15:51] LABS: Amorphous Mod (0-Heavy); Bacteria Many /hpf; Mucus Mod (0-Heavy); Red Blood Cells, Urine 25-50 /hpf (0-2); Squamous Epithelial Cells Few /hpf (Few); White Blood Cells, Urine 0-2 /hpf (0-5)
[2023-11-22 16:55] VITALS: BP 155/102
--- NOTE | 2023-11-22 18:00 | NUR ---
PT HAS REMAINED IN AFIB T/O SHIFT. STARTED ON CARDIZEM FOR RATE CONTROL, CURRENTLY 90- 120'S. ECHO COMPLETED THIS AM. PT DENIES CP. REMAINS ON RA. PT INDEP IN ROOM. PT C/O TENDERNESS IN ABDOMEN AND NAUSEA. RESTARTED IBS MEDS. PT HAD SMALL BM. UA PENDING CULTURE. POOR ORAL INTAKE. AT BEDSIDE, ATTENTIVE TO NEEDS.
[2023-11-22 20:34] VITALS: BP 150/93
[2023-11-23 00:11] VITALS: BP 143/86
[2023-11-23 04:19] VITALS: BP 139/90
--- NOTE | 2023-11-23 04:24 | NUR ---
SHIFT SUMMARY AOX4. IND IN RM. VSS. TELE A.FLUTTER & AFIB HR 90-120'S. HR MAINTAINED UNDER 110 POST EVENING MEDS. HR DOES INCREASE c ACTIVITY. REPORTS NAUSEA, NO EMESIS, MEDICATED c ZOFRAN 1x. REPORTS ABD CRAMPING, ASKED FOR DICYCLOMINE-MEDICATED 2x. REPORTS BEING DYSPNIC WITH ACTIVITY FOR PAST 2 DAYS. HAS OCC PRODUCTIVE COUGH. SPO2 >90% ON RA. BS DIM c CRACKLES IN BASES. TRACE EDEMA BLE. HAD DIFFICULTY RELAXING & WAS ANXIOUS, MEDICATED c BUSPAR. WILL MONITOR.
[2023-11-23 04:33] LABS: Hematocrit 34.7 % (33.0-51.0); Hemoglobin 12.1 g/dL (11.5-16.0); Mean Corpuscular HGB 33.3 pg (26.0-34.0); Mean Corpuscular HGB Conc 34.9 g/dL (31.5-36.5); Mean Corpuscular Volume 96 fL (80-100); Platelet Count 151 K/mm3 (150-400); RDW Coefficient Variation 14.1 % (11.7-14.2); RDW Standard Deviation 49.2 fL (35.1-46.3); Red Blood Cell Count 3.63 M/mm3 (3.80-5.20); White Blood Cell Count 4.49 K/mm3 (4.00-11.30)
[2023-11-23 04:49] LABS: Albumin, Blood 2.6 g/dL (3.4-5.0); Anion Gap 5 mmol/L (6-16); Blood Urea Nitrogen 17 mg/dL (8-24); Bun/Creatinine Ratio 19.5 (12.0-20.0); CO2, Blood 29 mmol/L (21-32); Calcium, Blood 8.2 mg/dL (8.5-10.1); Chloride, Blood 101 mmol/L (98-108); Creatinine, Blood 0.87 mg/dL (0.40-1.00); Glomerular Filtration Rate 67 (60-); Glucose, Blood 97 mg/dL (70-99); Magnesium, Blood 1.9 mg/dL (1.6-2.4); Phosphorus, Blood 3.4 mg/dL (2.5-4.9); Potassium, Blood 3.9 mmol/L (3.5-5.5); Sodium, Blood 135 mmol/L (136-145)
[2023-11-23 08:22] VITALS: BP 149/86
[2023-11-23 12:05] VITALS: BP 140/78
[2023-11-23 17:36] VITALS: BP 149/89
--- NOTE | 2023-11-23 18:28 | NUR ---
SHIFT SUMMARY PT REMAINS ON TELE AND RHYTHM IS AFIB/AFLUTTER. CARDIZEM DOSE INCREASED THIS AM BUT PT HAS REQUIRED CARDIZEM Q6 PRN FOR RATE CONTROL. PT HAS BEEN INDEPENDENT IN THE ROOM. SHE HAS BEEN AMBULATING IN THE HALWAYS. PT HAS DENIED PAIN MOST OF THE DAY BUT REPORTS A MILD HEADACHE THIS AFTERNOON, TYLENOL GIVE FOR HEADACHE. PT SITTING UP IN BED ALERT AND ORIENTED, CALL LIGHT WITHIN REACH.
[2023-11-23 20:07] VITALS: BP 130/94
[2023-11-24 04:01] VITALS: BP 135/80
--- NOTE | 2023-11-24 04:53 | NUR ---
SHIFT SUMMARY NO ACUTE CHANGES OVERNIGHT. PT A&O X4. ABLE TO MAKE NEEDS KNOWN. AFIB WITH HR 90-100'S WHILE AT REST. HR 120'S WITH EXERTION AND AMBULATING TO BATHROOM. BP STABLE. ON RA WITH SPO2 >92%. PT INDEPENDENT WITH ADL'S. PT AMBULATED AROUND UNIT WITH EARLIER IN THIS SHIFT. PT MEDICATED X1 FOR PAIN. NO NAUSEA REPORTED THIS SHIFT. BED IN LOWEST POSITION AND CALL LIGHT WITHIN REACH. THIS RN WILL REPORT TO ONCOMING DAYSHIFT RN.
[2023-11-24 08:55] VITALS: BP 129/71
[2023-11-24 09:00] LABS: Bun/Creatinine Ratio 17.1 (12.0-20.0); Calcium, Blood 8.8 mg/dL (8.5-10.1); Creatinine, Blood 0.82 mg/dL (0.40-1.00); Potassium, Blood 3.5 mmol/L (3.5-5.5)
[2023-11-24 11:45] VITALS: BP 109/64
--- NOTE | 2023-11-24 15:01 | NUR ---
ASSUMED CARE OF PT AT 0700 THIS AM. PT NOTED TO BE IN AFIB WITH HR 130-140s ON TELEMETRY. PT GIVEN AM MEDICATIONS, INCLUDING LOSARTAN AND EXTENDED RELEASE CARDIZEM. PT'S HR DID NOT CHANGE. APROX AN HOUR LATER, PT GIVEN PRN CARDIZEM PO. PT'S HR DID NOT CHANGE. AROUND 11AM, DR SHIELDS ROUNDING ON PT. PT IS OUT OF THE ROOM AMBULATING WITH HER , HR UP TO 160-170s. PT STATES SHE WAS LARGELY ASYMPTOMATIC, JUST FELT "JITTERY. LIKE I HAD TOO MUCH COFFEE." PT BACK TO ROOM, PLAN OF CARE DISCUSSED WITH DR SHIELDS AND THIS RN. NEW ORDERS RECEIVED FOR CARDIZEM IV PUSH. HR IMPROVED AFTER ADMINISTERING, NOW 90-110s. PT IS RESTING COMFORTABLY IN BED, AT BEDSIDE. POSSIBLY DISCHARGE TOMORROW IF HR REMAINS CONTROLLED. PT IS ABLE TO MAKE HER NEEDS KNOWN AND USES CALL LIGHT APPROPRIATELY. NO FURTHER NEEDS AT THIS TIME. WILL CONTINUE TO MONITOR AND TREAT, CALL LIGHTIN REACH.
[2023-11-24 17:07] VITALS: BP 114/96
--- NOTE | 2023-11-24 17:39 | NUR ---
NO ACUTE CHANGES SINCE LAST NOTE. PT'S HR HAS BEEN 90s-110s THIS AFTERNOON. PT STATES SHE NO LONGER FEELS "JITTERY." DENIES CHEST PAIN, PRESSURE OR SOB. PT HAS BEEN RESTING IN BED, AWAKE AND ALERT, ABLE TO USE CALL LIGHT AND MAKE NEEDS KNOWN. POSSIBLE PLAN FOR DISCHARGE TOMORROW PENDING HR CONTROL. WILL CONTINUE TO MONITOR/TREAT, AND GIVE REPORT TO NOC SHIFT RN AT THE END OF MY SHIFT.
[2023-11-24 20:20] VITALS: BP 125/75
[2023-11-25] VITALS (15 sets, daily range): BP systolic 94–136; BP diastolic 56–90
--- NOTE | 2023-11-25 01:57 | NUR ---
PATIENT UPDATE THIS RN NOTED PT WITH INCREASED HR PRIOR TO 0100, MAINTAINING HR 120-130'S, WITH HR BRIEFLY HITTING 150-160'S. PT REPORTED FEELING FLUTTERING IN CHEST WHEN HR 150-160'S. MD ROWE NOTIFIED. WITH ORDER TO GIVE 10MG IV PUSH. AT TIME OF PUSH BP STABLE, WITH HR MAINTAINING 130'S. PT NOW WITH HR 90-100'S. SPO2 >92% ON RA. BP STABLE. PT DENIES CHEST PAIN/PRESSURE AND SOB. BED IN LOWEST POSITION AND CALL LIGHT WITHIN REACH.
--- NOTE | 2023-11-25 04:33 | NUR ---
SHIFT SUMMARY SEE PREVIOUS NOTE. NO ACUTE CHANGES SINCE PREVIOUS NOTE. AFIB WITH HR 90-100'S AT THIS TIME. BP STABLE. ON RA WITH SPO2 >92%. DENIES CHEST PAIN/PRESSURE AT THIS TIME. PT MANAGING ADL'S INDEPENDENTLY. BED IN LOWEST POSITION AND CALL LIGHT WITHIN REACH. THIS RN WILL REPORT ONCOMING DAYSHIFT RN.
[2023-11-25 05:41] LABS: Albumin, Blood 2.7 g/dL (3.4-5.0); Anion Gap 5 mmol/L (6-16); Blood Urea Nitrogen 10 mg/dL (8-24); CO2, Blood 31 mmol/L (21-32); Calcium, Blood 8.8 mg/dL (8.5-10.1); Chloride, Blood 102 mmol/L (98-108); Creatinine, Blood 0.83 mg/dL (0.40-1.00); Glomerular Filtration Rate 71 (60-); Glucose, Blood 100 mg/dL (70-99); Magnesium, Blood 2.1 mg/dL (1.6-2.4); Phosphorus, Blood 3.6 mg/dL (2.5-4.9); Potassium, Blood 3.4 mmol/L (3.5-5.5); Sodium, Blood 138 mmol/L (136-145)
--- NOTE | 2023-11-25 14:52 | NUR ---
ASSUMED CARE OF PT AT 0700 THIS AM. HR NOTED TO BE ELEVATED 120-130s AFIB RVR. PT IS ASYMPTOMATIC OTHER THAN FEELING "JITTERY." HR ELEVATED INTO 150-170s WHEN PT IS AMBULATING TO RESTROOM. DR SHIELDS INCREASED CARDIZEM DOSE THIS AM. PT'S HR REMAINED ELEVATED. DR SHIELDS NOTIFED AND NEW ORDERS RECEIVED FOR CARDIZEM PUSH AND DRIP. DR MILAN CONSULTED BY DR SHIELDS. CARDIZEM DRIP STARTED AT 5MG AND THEN WAS INCREASED TO 10MG. HR THEN DECREASED 90-110s, AFIB, PT CONTINES TO BE ASYMPTOMATIC. SEE DOCUMENTED VS. DR MILAN IN ROOM WITH PT AND FAMILY APROX 1330. ORDERS RECEIVED TO INCREASE PO CARDIZEM AND GIVE AN ADDITIONAL 60MG PO NOW. PT IS TO STAY ON CARDIZEM DRIP FOR NOW WITH HR GOAL LESS THAN 120. DR MILAN DISCUSSED MALABSORBTION ISSUES AND HOW THEY MAY BE EFFECTING PT'S RESPONSES TO MEDICATION.
--- NOTE | 2023-11-25 17:58 | NUR ---
NO ACUTE CHANGES SINCE LAST NOTE. PT OOB AMBULATING WITH CARDIZEM GTT CONTINUING, HR 110-120s. BOWEL CARE GIVEN EARLIER TODAY, PT IS C/O CRAMPS BUT HAS NOT HAD A BM YET. PT HAS NO COMPLAINTS, SEE DOCUMENTED VITAL SIGNS AND ASSESSMENT. PT BACK TO ROOM AFTER WALKING WITH FAMILY AROUND THE UNIT. BED IN LOWEST POSITION, CALL LIGHT IN REACH. WILL CONTINUE TO MONITOR/TREAT, AND GIVE REPORT TO NOC SHIFT RN AT END OF SHIFT.
[2023-11-26] VITALS (8 sets, daily range): BP systolic 95–133; BP diastolic 54–82
[2023-11-26 04:31] LABS: Bun/Creatinine Ratio 13.9 (12.0-20.0); Calcium, Blood 8.6 mg/dL (8.5-10.1); Creatinine, Blood 0.79 mg/dL (0.40-1.00); Potassium, Blood 3.9 mmol/L (3.5-5.5)
--- NOTE | 2023-11-26 04:40 | NUR ---
SHIFT SUMMARY PT CONTINUES TO BE IN AFIB. HR 80-100. WAS ON CARDIZEM GTT FOR MOST OF THIS SHIFT. GTT NOW ON STANDBY. HR 120-130'S WITH EXERTION. SBP 90'S PRIOR TO GTT BEING PUT ON STANDBY. BP STABLE AT THIS TIME. ON RA WITH SPO2 >92%. MEDICATED PER EMAR FOR BOWEL CARE. NO BM YET THIS SHIFT. PT IND WITH ADL'S. BED IN LOWEST POSITION AND CALL LIGHT WITHIN REACH. THIS RN WILL REPORT TO ONCOMING DAYSHIFT RN.
--- NOTE | 2023-11-26 12:37 | NUR ---
Family at bedside. Dr. Ku just finished rounding.
--- NOTE | 2023-11-26 14:06 | NUR ---
Call from Dr. Ambrosio; he is unable to see the patient but continue same regimen of medication. Pt is ok for discharge from his standpointm Pt given Tylenol at this time for headache.
[2023-11-26] MEDS ORDERED: DILT180 PO (15:37)
[2023-11-26] MEDS ORDERED: MIRALAX17 GM PO (15:37)
[2023-11-26] MEDS ORDERED: MELATONIN5 M1 PO (15:37)
[2023-11-26] MEDS ORDERED: DILT30 PO (15:38)
[2023-11-26] MEDS ORDERED: FURO20 PO (15:39)
== END 2023-11-26 16:10 | disposition home or self-care (01) | DRG 291 ==
LOC: ER 07:02 → MEDS 11:40 → PCU 11:40 → ER 13:00 → PCU 13:18
PROVIDERS: Emergency Medicine; Physician Assistant; ADMIT Internal Medicine
DX: I11.0 Hypertensive heart disease with heart failure (principal); I50.33 Acute on chronic diastolic (congestive) heart failure; E87.1 Hypo-osmolality and hyponatremia; K90.9 Intestinal malabsorption, unspecified; I48.19 Other persistent atrial fibrillation; F41.9 Anxiety disorder, unspecified; K58.1 Irritable bowel syndrome with constipation; I08.3 Combined rheumatic disorders of mitral, aortic and tricuspid valves; I27.20 Pulmonary hypertension, unspecified; G47.00 Insomnia, unspecified; F32.A Depression, unspecified; M19.90 Unspecified osteoarthritis, unspecified site; K57.90 Diverticulosis of intestine, part unspecified, without perforation or abscess without bleeding; E87.6 Hypokalemia; T50.2X5A Adverse effect of carbonic-anhydrase inhibitors, benzothiadiazides and other diuretics, initial encounter; Z79.01 Long term (current) use of anticoagulants; Z88.0 Allergy status to penicillin; Z88.2 Allergy status to sulfonamides; Z88.1 Allergy status to other antibiotic agents; Z87.891 Personal history of nicotine dependence; Z11.52 Encounter for screening for COVID-19
CPT/HCPCS: 0241U; 36415; 71046; 80048; 80053; 80069; 81001; 83735; 83880; 84100; 84484; 85025; 85027; 87086; 93005; 93010; 93306; 96374; 96375; 96376; 99285-25; A9270; J1940; J2405

== ENCOUNTER → 2023-12-02 | Outpatient (CLI) | payer MEDICARE ==
[~2023-12-02] MED LIST changes: +BUSP5 PO; +CREON DR 12,001 EACH PO; +DILT180 PO; +DILT30 PO; +FURO20 PO; +MELATONIN5 M1 PO; +METO100ER PO; +MIRALAX17 GM PO; +ONDA4 PO; +TRAZ100 PO
[2023-12-02 12:25] LABS: Adenovirus F 40/41 Not Detected (NOT DETECT); Astrovirus Not Detected (NOT DETECT); Campylobacter Sp Not Detected (NOT DETECT); Cryptosporidium Not Detected (NOT DETECT); Cyclospora Cayetanensis Not Detected (NOT DETECT); E. Coli O157 Not Detected (NOT DETECT); Entamoeba Histolytica Not Detected (NOT DETECT); Enteroaggregative E. coli-EAEC Not Detected (NOT DETECT); Enteropathogenic E. coli-EPEC Not Detected (NOT DETECT); Enterotoxigenic E. coli-ETEC Not Detected (NOT DETECT); Giardia Lamblia Not Detected (NOT DETECT); Norovirus GI/GII Not Detected (NOT DETECT); Plesiomonas Shigelloides Not Detected (NOT DETECT); Rotavirus A Not Detected (NOT DETECT); Salmonella Sp Not Detected (NOT DETECT); Sapovirus Not Detected (NOT DETECT); Shiga Toxin-prod E. coli-STEC Not Detected (NOT DETECT); Shigella/Enteroin E. coli-EIEC Not Detected (NOT DETECT); Vibrio Cholerae Not Detected (NOT DETECT); Vibrio Sp Not Detected (NOT DETECT); Yersinia Enterocolitica Not Detected (NOT DETECT)
[2023-12-05 01:26] LABS: PANCREATIC ELASTASE,FECAL >800 ug/g (>=100)
[2023-12-06 02:31] LABS: CALPROTECTIN,FECAL 76 ug/g (<=49)
== END ==
LOC: LAB 09:14 → LAB SHORT 09:14
PROVIDERS: Family Medicine
DX: R10.9 Unspecified abdominal pain (principal); K58.0 Irritable bowel syndrome with diarrhea; R19.5 Other fecal abnormalities
CPT/HCPCS: 82653; 83993; 87507

== ENCOUNTER → 2024-09-12 | Outpatient (CLI) | payer MEDICARE ==
[2024-09-13 10:24] LABS: BASOPHILS ABSOLUTE AUTO 0.03 K/mm3 (0.00-0.23); BASOPHILS PERCENT AUTO 1 % (0-2); EOSINOPHILS ABSOLUTE AUTO 0.08 K/mm3 (0.00-0.68); EOSINOPHILS PERCENT AUTO 2 % (0-6); Hematocrit 39.1 % (33.0-51.0); IMMATURE GRAN ABSOLUTE AUTO 0.01 K/mm3 (0.00-0.10); IMMATURE GRAN PERCENT AUTO 0 % (0-1); LYMPHOCYTES PERCENT AUTO 37 % (21-46); MONOCYTES ABSOLUTE AUTO 0.66 K/mm3 (0.16-1.47); MONOCYTES PERCENT AUTO 14 % (4-13); Mean Corpuscular HGB 33.2 pg (26.0-34.0); Mean Corpuscular HGB Conc 33.2 g/dL (31.5-36.5); Mean Corpuscular Volume 100 fL (80-100); Mean Platelet Volume 9.8 fL (9.1-12.4); NEUTROPHILS ABSOLUTE AUTO 2.25 K/mm3 (1.96-9.15); NEUTROPHILS PERCENT AUTO 47 % (41-73); Platelet Count 201 K/mm3 (150-400); RDW Coefficient Variation 13.4 % (11.7-14.2); RDW Standard Deviation 49.2 fL (35.1-46.3); Red Blood Cell Count 3.92 M/mm3 (3.80-5.20); White Blood Cell Count 4.83 K/mm3 (4.00-11.30)
[2024-09-13 11:09] LABS: Albumin, Blood 3.8 g/dL (3.4-5.0); Albumin/Globulin Ratio 1.3 (0.8-1.8); Bilirubin, Total 0.3 mg/dL (0.1-1.0); Bun/Creatinine Ratio 21.7 (12.0-20.0); Calcium, Blood 9.3 mg/dL (8.5-10.1); Creatinine, Blood 0.74 mg/dL (0.40-1.00); Magnesium, Blood 2.1 mg/dL (1.6-2.4); Potassium, Blood 4.1 mmol/L (3.5-5.5); Total Protein, Blood 6.8 g/dL (6.4-8.2)
== END ==
LOC: LAB SHORT 17:05 → LAB 17:05
PROVIDERS: Family Medicine
DX: E53.8 Deficiency of other specified B group vitamins (principal); E61.1 Iron deficiency; M85.80 Other specified disorders of bone density and structure, unspecified site
CPT/HCPCS: 80053; 82306; 82607; 82728; 83540; 83550; 83735; 85025